=== PATIENT | male | born 1950 | race African-American/Black ===

== ENCOUNTER 2024-11-14 12:35 | Emergency (ER) | payer MEDICARE, MEDICAID ==
[~2024-11-14] VITALS: Ht 177.8 cm; Wt 88.0 kg
[2024-11-14 12:44] VITALS: O2SAT 98
[2024-11-14] MEDS: SODIUM CHLORIDE 0.9% 1,000 ML IV ONE (14:11)
[2024-11-14] MEDS: PIPERACILLIN/TAZO 3.375G/50ML 50 ML IV ONE (14:24)
[2024-11-14 14:59] LABS: EOSINOPHILS % 0.6 % (0.0-5.0); HEMATOCRIT. 32.2 % (42.0-52.0); HEMOGLOBIN. 10.5 g/dL (14.0-18.0); MEAN CORPUSCULAR HEMOGLOBIN 26.9 pg (28.0-32.0); MEAN CORPUSCULAR HGB CONC 32.5 g/dL (31.0-37.0); MEAN CORPUSCULAR VOLUME 82.6 fL (80.0-94.0); MONOCYTES % 10.2 % (2.0-8.0); NEUTROPHILS % 71.2 % (40.0-76.0); PLATELET 183 x1000/uL (130-400); RED CELL DISTRIBUTION WIDTH 14.8 % (11.6-14.6); WHITE BLOOD COUNT 5.2 x1000/uL (4.5-11.0)
[2024-11-14 15:03] LABS: CHLORIDE 112 mEq/L (98-107); POTASSIUM 4.2 mEq/L (3.5-5.1); SODIUM 147 mEq/L (136-145)
[2024-11-14 15:04] LABS: CARBON DIOXIDE 28 mEq/L (21-32)
[2024-11-14] MEDS: VANCOMYCIN 1G PREMIX 200 ML IV ONE (15:07)
[2024-11-14 15:09] LABS: CREATININE 1.1 mg/dL (0.6-1.3); GLUCOSE 93 mg/dL (70-105); UREA NITROGEN BLOOD 16 mg/dL (9-23)
[2024-11-14 15:10] LABS: ETHANOL BLOOD < 10 mg/dL (<10); LACTATE DEHYDROGENASE 143 IU/L (120-246)
[2024-11-14 15:11] LABS: ALANINE AMINOTRANSFERASE < 7 IU/L (10-49); ALBUMIN 3.8 g/dL (3.2-4.8); ASPARTATE AMINOTRANSFERASE 16 IU/L (<34); BILIRUBIN DIRECT 0.4 mg/dL (<=3.0); BILIRUBIN TOTAL 1.4 mg/dL (0.1-1.0); CREATINE KINASE 127 IU/L (46-171); TROPONIN I HIGH SENSITIVITY 6 ng/L (3.0-53)
[2024-11-14 15:26] LABS: PROTHROMBIN TIME 11.6 sec (9.6-11.0)
[2024-11-14] MEDS ORDERED: CARBIDOPA/LEVODOPA 25/250MG TABLET PO SCH ×3 (16:30→22:00)
[2024-11-14 18:59] VITALS: BP 178/80; PULSE 60; RESP 15; TEMP 37.1; O2SAT 99
[2024-11-15] MEDS ORDERED: CARBIDOPA/LEVODOPA 25/250MG TABLET PO SCH (06:00)
== END 2024-11-14 19:45 | disposition left against medical advice (07) ==
LOC: ER 12:35
DX: R55 Syncope and collapse (principal); E87.0 Hyperosmolality and hypernatremia; I95.9 Hypotension, unspecified; G20.A1 Parkinson's disease without dyskinesia, without mention of fluctuations; Z55.6 Problems related to health literacy
CPT/HCPCS: 80076; 80048; 80320; 82550; 83880; 83605; 83615; 85025; 85610; 86850; 86900; 86901; 87040; 84484; 84145; 71045; 70450; 93005; 96368; 96365; 96366; 99291; J2543; J3370; J7030; G0480